=== PATIENT | male | born 1950 | race Hispanic/Latino ===

== ENCOUNTER 2017-07-23 19:10 | Emergency (ER) | payer MEDICARE ==
[2017-07-23 19:34] VITALS: BP 150/86
[2017-07-23] MEDS ORDERED: NORCO 5/325 PO ONE (21:16)
--- NOTE | 2017-07-23 21:18 | Emergency Department Report ---
ED General Adult HPI - General Chief complaint: Extremity Injury, Lower Stated complaint: FALL Time Seen by Provider: 07/23/17 21:08 Source: patient Mode of arrival: Wheelchair Limitations: Physical Limitation - History of Present Illness Initial comments: Patient is a 67-year-old male who is presenting after a fall on July 11. Patient states he fell from a truck. Patient has a fracture of the ankle the right ankle. Patient was seen in [facility] and had a splint placed and was supposed to follow with orthopedics but has not followed up. Patient does not know how bad his fracture is or the exact location. Patient is presenting stating that he is out of his Percocet tens. Patient would like a refill. Patient also would like general advice as far as what to do next. Patient states the pain is 8 out of 10 in severity. There is no radiation. His point has not been removed. Patient denies any other injury or trauma nausea vomiting diarrhea or fever. - Related Data Previous Rx's Medication Instructions Recorded Last Taken Type HYDROcodone/APAP 5-325 [[place] 1 each PO Q4HR PRN #15 tablet 07/23/17 Unknown Rx 5/325] Ibuprofen [Motrin] 800 mg PO Q8HR PRN #20 tablet 07/23/17 Unknown Rx Allergies Allergy/AdvReac Type Severity Reaction Status Date / Time No Known Allergies Allergy Unverified 07/23/17 19:26 ED Review of Systems ROS: Stated complaint: FALL Other details as noted in HPI Comment: All other systems reviewed and negative ED Past Medical Hx - Past Medical History Previous Medical History?: Yes Additional medical history: Right leg fracture 07/11/17 - Social History Smoking Status: Former Smoker - Medications Home Medications: Home Medications Medication Instructions Recorded Confirmed Last Taken Type HYDROcodone/APAP 5-325 [[place] 1 each PO Q4HR PRN #15 tablet 07/23/17 Unknown Rx 5/325] Ibuprofen [Motrin] 800 mg PO Q8HR PRN #20 tablet 07/23/17 Unknown Rx ED Physical Exam - General Limitations: Physical Limitation General appearance: alert - Head Head exam: Present: atraumatic - Eye Eye exam: Present: normal appearance, PERRL - ENT ENT exam: Present: normal exam - Neck Neck exam: Present: normal inspection. Absent: tenderness - Respiratory Respiratory exam: Present: normal lung sounds bilaterally. Absent: wheezes, rales, rhonchi - Cardiovascular Cardiovascular Exam: Present: regular rate, normal rhythm - GI/Abdominal GI/Abdominal exam: Present: soft - Extremities Exam Extremities exam: Present: normal inspection, other (patient's right lower extremity has a posterior mold splint wrapped with Gonsalo wrap. The toes are exposed have good capillary refill he has full range of motion to the toes) - Back Exam Back exam: Present: normal inspection, full ROM ED Course Vital Signs 07/23/17 07/23/17 19:28 21:27 Temperature 97.8 F Pulse Rate 69 Respiratory 20 18 Rate Blood Pressure 150/86 O2 Sat by Pulse 98 Oximetry ED Medical Decision Making - Radiology Data Radiology results: report reviewed, image reviewed - Medical Decision Making Patient is a 67-year-old male who has not had treatment as of yet for his trimalleolar fracture of the right lower extremity. Patient be referred to orthopedics and several days of pain meds will be given Critical care attestation.: If time is entered above; I have spent that time in minutes in the direct care of this critically ill patient, excluding procedure time. ED Disposition Clinical Impression: Trimalleolar fracture of ankle, closed Disposition: DC-[id number] TO HOME OR SELFCARE Is pt being admited?: No Condition: Fair Instructions: Osteoarthritis (ED), Ankle Fracture (ED) Prescriptions: HYDROcodone/APAP 5-325 [[place] 5/325] 1 each PO Q4HR PRN #15 tablet PRN Reason: Pain Ibuprofen [Motrin] 800 mg PO Q8HR PRN #20 tablet PRN Reason: Pain Referrals: PRIMARY MD HONG [Primary Care Provider] - 3-5 Days RANI CLARK MD [Staff Physician] - 3-5 Days
--- NOTE | 2017-07-23 21:47 | XRay Report ---
FINAL REPORT PROCEDURE: XR ANKLE 3+V RT TECHNIQUE: RIGHT ankle radiographs, AP, lateral, and oblique views. CPT 69332 HISTORY: prev fracture COMPARISON: No prior studies are available for comparison. FINDINGS: There are fractures of the distal fibula, posterior aspect of the distal tibia and the medial malleolus. The tibiotalar joint is shifted laterally. The talus and calcaneus are intact.. There is a posterior calcaneal spur. There is generalized soft tissue swelling. IMPRESSION: Fractures of the distal tibia and fibula. This is a trimalleolar fracture. Tibiotalar joint is displaced laterally..
== END 2017-07-23 22:06 | disposition home or self-care (01) ==
LOC: ED 19:10
DX: S82.851A Displaced trimalleolar fracture of right lower leg, initial encounter for closed fracture (principal); Z87.891 Personal history of nicotine dependence; W17.89XA Other fall from one level to another, initial encounter; Y93.89 Activity, other specified; Y92.89 Other specified places as the place of occurrence of the external cause; Y99.8 Other external cause status
CPT/HCPCS: 99283

== ENCOUNTER 2017-08-02 05:55 | Day surgery (SDC) | payer SELFPAY ==
[2017-08-02] MEDS ORDERED: ANCEF/STERILE WATER 2 GM/20 ML IV NR (06:00)
[2017-08-02] MEDS ORDERED: NACL BACTERIOSTATIC INFILTRATI ONE (06:44)
[2017-08-02 07:18] LABS: BUN/Creatinine Ratio 19; Blood Urea Nitrogen 17 mg/dL (9-20); Calcium 9.3 mg/dL (8.4-10.2); Hemolysis Index 31
[2017-08-02] MEDS ORDERED: DIPRIVAN 10 MG/ML IV ONE (07:19)
[2017-08-02] MEDS ORDERED: XYLOCAINE MPF 2% ONE (07:20)
[2017-08-02] MEDS ORDERED: SUBLIMAZE ONE (07:20)
[2017-08-02] MEDS ORDERED: SUBLIMAZE IV NR (07:24)
[2017-08-02] MEDS ORDERED: ZOFRAN IV PRN (07:25)
[2017-08-02] MEDS ORDERED: MORPHINE IV PRN ×2 (07:25)
[2017-08-02 07:26] LABS: Basophils # (Auto) 0.1 K/mm3 (0.0-0.1); Basophils % (Auto) 0.8 % (0.0-1.8); Eosinophils # (Auto) 0.2 K/mm3 (0.0-0.4); Eosinophils % (Auto) 2.5 % (0.0-4.3); Hematocrit 45.4 % (35.5-45.6); Hemoglobin 15.5 gm/dl (11.8-15.2); Lymphocytes # (Auto) 2.2 K/mm3 (1.2-5.4); Lymphocytes % (Auto) 23.1 % (13.4-35.0); Mean Corpuscular HGB Conc 34 % (32-34); Mean Corpuscular Hemoglobin 29 pg (28-32); Mean Corpuscular Volume 84 fl (84-94); Monocytes # (Auto) 0.6 K/mm3 (0.0-0.8); Monocytes % (Auto) 6.6 % (0.0-7.3); Platelet Count 229 K/mm3 (140-440); Red Cell Distribution Width 12.9 % (13.2-15.2)
[2017-08-02] MEDS ORDERED: MARCAINE 0.5% 30 ML INFILTRATI ONE (07:41)
[2017-08-02] MEDS ORDERED: DECADRON ONE (07:42)
[2017-08-02] MEDS ORDERED: VERSED IV NR (08:00)
[2017-08-02] MEDS ORDERED: NACL 0.9% 1000 ML 1,000 ML IV SCH (08:00)
[2017-08-02] MEDS ORDERED: NEURONTIN PO NR (08:00)
[2017-08-02] MEDS ORDERED: PEPCID PO NR (08:00)
--- NOTE | 2017-08-02 08:40 | Anesthesia Day of Surgery ---
Anesthesia Day of Surgery - Day of Surgery Patient Examined: Yes Patient is NPO: Yes
--- NOTE | 2017-08-02 08:40 | Anesthesia Consultation ---
Anesthesia Consult and Med Hx Date of service: 08/02/17 - Airway Anesthetic Teeth Evaluation: Good ROM Head & Neck: Adequate Mental/Hyoid Distance: Adequate Mallampati Class: Class II Intubation Access Assessment: Probably Good - Pulmonary Exam CTA: Yes - Cardiac Exam Cardiac Exam: RRR - Pre-Operative Health Status ASA Pre-Surgery Classification: ASA2 Proposed Anesthetic Plan: General Nerve Block: Pop - Pulmonary Hx Smoking: Yes (46 YR HX OF SMOKING/QUIT 2011) - Cardiovascular System Hx Hypertension: No - Central Nervous System Hx Seizures: No CVA: No - Endocrine Hx Renal Disease: No Hx Liver Disease: No Hx Non-Insulin Dependent Diabetes: No - Other Systems Hx Cancer: No Hx Obesity: Yes
[2017-08-02] MEDS ORDERED: ePHEDrine SULFATE ONE (09:05)
[2017-08-02] MEDS ORDERED: ZOFRAN ONE (10:07)
[2017-08-02] MEDS ORDERED: LACTATED RINGERS 1,000 ML ONE (10:30)
--- NOTE | 2017-08-02 12:21 | Post Anesthesia Evaluation ---
- Post Anesthesia Evaluation Patient Participated: Yes Airway Patent: Yes Stable Respiratory Function: Yes Nausea/Vomiting: No Temp > 96.8F: Yes Pain Manageable: Yes Adequeate Hydration: Yes Anesthesia Complications: No Patient on Ventilator: No
[2017-08-02 13:12] VITALS: BP 119/77
--- NOTE | 2017-08-02 13:16 | Procedure Note ---
Date of procedure: 08/02/17 Pre-op diagnosis: displaced right bimalleolar ankle fracture Post-op diagnosis: same Procedure: Open reduction internal fixation right ankle fracture Procedure The patient was brought to the OR after being given a femoral nerve block in preop holding next patient was placed on the OR table in a supine position following induction and intubation anesthesia the patient's right lower extremity was prepped and draped in the usual sterile manner. A timeout procedure was done to identify the patient and the correct operative site. The leg was exsanguinated followed by inflation of the pneumatic tourniquet to 300 mmHg.Incision was made along the lateral border of the distal fibula distally taken down sharply through skin subcutaneous tissue the fracture site was seen and identified The fracture fragments were manipulated into a more reduced position and held by way of a K wire temporary fixation. Next a 8 hole one third semitubular plate was applied to the distal fibula with screws of various lengths and AP and lateral view was obtained on the C-arm showing good reduction at the fracture and placement of our hardware. A curvilinear incision was made along the medial malleolus was again taken down sharply through skin and subcutaneous tissue the fracture was identified due to the delay in surgical intervention the patient was noted to have some early fracture callus or healing this was debrided using curet and rongeurs next a K wire was used to temporarily fix the medial fragment to the distal tibia this was followed by insertion of 24.0 cannulated screws into the medial fragment again AP and lateral views were obtained and showed good reduction of the medial malleolus fragment and placement of the hardware C was copiously irrigated and was closed in a standard routine fashion. Dressings were applied as well as a well-padded posterior splint the patient tolerated the procedure there were no complications he was taken to postanesthesia recovery in a stable condition Anesthesia: GETA, regional
[2017-08-02] MEDS ORDERED: NORCO 7.5/325 PO SCH (14:00)
--- NOTE | 2017-08-02 19:02 | XRay Report ---
FINAL REPORT EXAM: XR ANKLE 2V RT HISTORY: RT ANKLE FX/ORIF RT ANKLE TECHNIQUE: 2 fluoroscopic spot films right ankle PRIORS: Compared with exam of July 23, 2017 FINDINGS: Surgical plate bridges the distal fibula. Surgical screws are present within the distal fibula and medial malleolus with a screw bridging the tibia-fibular articulation. IMPRESSION: Fluoroscopic spot films demonstrating ORIF of previously described bimalleolar fractures
== END 2017-08-02 15:10 | disposition home or self-care (01) ==
LOC: OR 05:55
PROVIDERS: ATTEND Orthopaedic Surgery
DX: S82.841A Displaced bimalleolar fracture of right lower leg, initial encounter for closed fracture (principal); E66.9 Obesity, unspecified; Z87.891 Personal history of nicotine dependence; V89.9XXA Person injured in unspecified vehicle accident, initial encounter; Y93.89 Activity, other specified; Y92.89 Other specified places as the place of occurrence of the external cause; Y99.8 Other external cause status; Z68.33 Body mass index [BMI] 33.0-33.9, adult
CPT/HCPCS: 27814; 36415; 64450; 73600; 80048; 85025; C1713; C1769; J0690; J1100; J2250; J2270; J2405; J2704; J3010; J7030; J7120

== ENCOUNTER 2017-09-27 14:12 | Outpatient (CLI) | payer MEDICARE ==
--- NOTE | 2017-09-27 23:26 | XRay Report ---
FINAL REPORT EXAM: XR ANKLE 3+V RT TECHNIQUE: Three views of the right ankle: AP, mortise and lateral views. PRIORS: July 23, 2017 radiograph FINDINGS: Surgical changes from previous plate and screw fixation of the distal fibula, syndesmotic screw placement and fixation of the medial malleolus. Hardware appears intact. There is expected soft tissue swelling and disuse osteopenia. The distal fibular fracture, medial malleolus and posterior malleolus fractures remain distinct. There is widening of the medial ankle clear space with calcification between the medial malleolus and the medial tibia may represent ossified bodies or heterotopic ossification. Midfoot and tibiotalar degenerative changes. Moderate enthesophyte of the calcaneus attachment site of the Achilles. IMPRESSION: 1. Surgical changes from previous open reduction internal fixation of a trimalleolar ankle fracture. Fracture lines remain distinct and there is no evidence of hardware complication. 2. Medial clear space is widened and there are calcific densities positioned within the clear space, either representing dystrophic calcification or intra-articular bodies. 3. Disuse osteopenia. HISTORY:
== END 2017-09-27 14:13 | disposition home or self-care (01) ==
LOC: XRAY 14:12
PROVIDERS: ATTEND Orthopaedic Surgery
DX: S82.841D Displaced bimalleolar fracture of right lower leg, subsequent encounter for closed fracture with routine healing (principal); M19.071 Primary osteoarthritis, right ankle and foot; M85.871 Other specified disorders of bone density and structure, right ankle and foot; X58.XXXD Exposure to other specified factors, subsequent encounter

== ENCOUNTER 2017-11-23 10:26 | Day surgery (SDC) | payer MEDICARE ==
[~2017-11-23 10:26] MED LIST: VERSED IV NR
[2017-11-23] MEDS ORDERED: ANCEF/STERILE WATER 2 GM/20 ML IV NR (11:00)
[2017-11-23] MEDS ORDERED: LACTATED RINGERS 1,000 ML ONE (11:37)
[2017-11-23] MEDS: DILAUDID IV PRN ×2 (11:50→12:40)
[2017-11-23] MEDS ORDERED: MINERAL OIL TOPICAL LIGHT TP ONE ×2 (12:16→14:14)
--- NOTE | 2017-11-23 12:42 | Anesthesia Consultation ---
Anesthesia Consult and Med Hx Date of service: 11/23/17 - Airway Anesthetic Teeth Evaluation: Dentures ROM Head & Neck: Adequate Mental/Hyoid Distance: Adequate Mallampati Class: Class III Intubation Access Assessment: Possibly Difficult - Pulmonary Exam CTA: Yes - Cardiac Exam Cardiac Exam: RRR - Pre-Operative Health Status ASA Pre-Surgery Classification: ASA3 Proposed Anesthetic Plan: General (GA with LMA) - Pulmonary Hx Smoking: Yes (STOPPED 2011 , SMOKED X 40 YRS) Hx Asthma: Yes ( CHILD ONLY) Hx Sleep Apnea: No (MOISÉS PRE SCREEN HIGH RISK) - Cardiovascular System Hx Hypertension: No - Central Nervous System Hx Seizures: No CVA: No - Endocrine Hx Renal Disease: No Hx Liver Disease: No Hx Non-Insulin Dependent Diabetes: No - Other Systems Hx Cancer: No Hx Obesity: Yes
--- NOTE | 2017-11-23 12:42 | Anesthesia Day of Surgery ---
Anesthesia Day of Surgery - Day of Surgery Patient Examined: Yes Patient H&P Reviewed: Yes Patient is NPO: Yes
[2017-11-23] MEDS ORDERED: DIPRIVAN 10 MG/ML IV ONE (12:43)
[2017-11-23] MEDS ORDERED: XYLOCAINE MPF 2% ONE (12:43)
[2017-11-23] MEDS ORDERED: SUBLIMAZE ONE (12:43)
[2017-11-23] MEDS ORDERED: ZOFRAN IV PRN (12:43)
[2017-11-23] MEDS ORDERED: ROBINUL ONE (13:00)
[2017-11-23] MEDS ORDERED: ePHEDrine SULFATE ONE (13:14)
[2017-11-23] MEDS ORDERED: XYLOCAINE 1% 20 mL ONE (13:43)
[2017-11-23] MEDS ORDERED: MARCAINE 0.25% INFILTRATI ONE ×2 (14:01→14:15)
[2017-11-23] MEDS ORDERED: XYLOCAINE 1% 20 mL INFILTRATI ONE (14:15)
[2017-11-23] MEDS ORDERED: NACL 0.9% IR ONE (14:15)
--- NOTE | 2017-11-23 14:50 | Procedure Note ---
Date of procedure: 11/23/17 Pre-op diagnosis: full thickness skin loss left foot Post-op diagnosis: same Procedure: Split thickness skin graft left foot Procedure The patient was brought to the or to see your table in supine position following induction intubation anesthesia patient's left lower extremity was prepped and draped in the usual sterile manner. A timeout procedure was done to identify the patient and the correct operative site. The right foot which had a large open wound measuring 6 x 4 x 2 cm was debrided using a scrub brush to create a bleeding bed for the skin graft care was taken to remove any necrotic tissue. Using the dermatome A 3 x 7 cm split thickness skin graft was taken from the anterior thigh this was then meshed using a 2-1 ratio. The skin graft was then laid all into the open wound and secured with metallic oswaldo fine mesh gauze and moderate nylon sutures. Routine postop dressings were applied the donor site was then anesthetized using a mixture of lidocaine and Marcaine for postop pain management. The patient was extubated and was then taken to postanesthesia recovery in stable condition Anesthesia: MAC Surgeon: RANI CLARK Estimated blood loss: 50-100ml Pathology: none Condition: stable Disposition: PACU
[2017-11-23] MEDS ORDERED: NORCO 5/325 PO PRN (14:56)
[2017-11-23 17:10] VITALS: BP 109/75
[2017-11-24] MEDS ORDERED: LACTATED RINGERS 1,000 ML IV SCH (06:00)
== END 2017-11-23 16:25 | disposition home or self-care (01) ==
LOC: OR 10:26
PROVIDERS: ATTEND Orthopaedic Surgery
DX: L89.523 Pressure ulcer of left ankle, stage 3 (principal); J45.909 Unspecified asthma, uncomplicated; E66.9 Obesity, unspecified; Z68.34 Body mass index [BMI] 34.0-34.9, adult; Z87.891 Personal history of nicotine dependence
CPT/HCPCS: 15120; J0690; J1170; J2250; J2704; J3010; J7120